=== PATIENT | female | born 1965 | race Caucasian/White ===

== ENCOUNTER → 2016-09-16 | Outpatient (CLI) | payer OTHER ==
--- NOTE | 2016-09-17 10:05 | Diagnostic Imaging Report ---
Bilateral screening mammogram The current study was also evaluated with a Computer Aided Detection (CAD) system. Indication: Screening. No current complaints stated on the questionnaire. COMPARISON: 09/08/15. FINDINGS: The breasts are composed of heterogeneously dense parenchyma which may decrease mammographic sensitivity. There is no mass, architectural distortion or suspicious cluster of calcification. Allowing for technique and positional differences, no suspicious change is seen. IMPRESSION: Dense breasts with no definite change. ACR BI-RADS Category 2: Benign findings. Result letter will be mailed to the patient. Note: At least 10% of breast cancer is not imaged by mammography. Dictated by: Dictated on workstation # [id number]
== END ==
LOC: RAD 10:40
PROVIDERS: ATTEND Nurse Practitioner Adult Health
DX: Z12.31 Encounter for screening mammogram for malignant neoplasm of breast (principal)
CPT/HCPCS: 77067

== ENCOUNTER → 2017-11-06 | Outpatient (CLI) | payer OTHER ==
--- NOTE | 2017-11-06 10:41 | Diagnostic Imaging Report ---
INDICATION: Routine screening. COMPARISON: 09/16/2016 and 09/08/2015. TECHNIQUE: Screening digital mammography was performed bilaterally with a Computer Aided Detection (CAD) system. FINDINGS: Both breasts are heterogeneously dense, limiting the sensitivity of mammography. There is a cluster of microcalcifications in the upper outer aspect of the left breast at mid to posterior depth. The calcifications appear to be increased in number since the prior exam. Additional views are recommended. No spiculated mass is seen. The axillae are unremarkable. The right breast is unremarkable. IMPRESSION: Cluster of microcalcifications in the upper outer left breast, increased since the prior exam. Additional views including magnification views and mediolateral views are recommended for further evaluation. ACR BI-RADS Category 0: Incomplete. (Needs additional imaging evaluation). Result letter will be mailed to the patient. Note: At least 10% of breast cancer is not imaged by mammography. Dictated by: Dictated on workstation # [id number]
== END ==
LOC: RAD 09:06
PROVIDERS: ATTEND Nurse Practitioner Family
DX: Z12.31 Encounter for screening mammogram for malignant neoplasm of breast (principal); R92.0 Mammographic microcalcification found on diagnostic imaging of breast
CPT/HCPCS: 77067

== ENCOUNTER → 2017-12-05 | Outpatient (CLI) | payer OTHER ==
[~2017-12-05] VITALS: Ht 175.3 cm; Wt 86.2 kg
[~2017-12-05] MED LIST: LIDOCAINE 1% INJ 50 ML (XYLOCAINE) VIAL IJ ONE; LIDOCAINE 1% INJ 50 ML (XYLOCAINE) VIAL ONE
[2017-12-05 13:37] VITALS: BP 117/69
[2017-12-05 15:35] VITALS: BP 118/79
--- NOTE | 2017-12-05 16:25 | Diagnostic Imaging Report ---
INDICATION: Left breast calcifications. Patient presents for stereotactic biopsy. PROCEDURE: Patient was brought to the stereotactic suite and placed in a sitting upright position. The breast was positioned in a 90 degree lateral position. The lateral portion of the left breast was prepped and draped in usual sterile fashion. The cluster of microcalcifications in the upper and outer aspect of the left breast were stereotactically targeted. Dermatotomy was made. The 8-gauge needle was advanced into the left breast with the tip adjacent to the cluster of microcalcifications. At this point, the patient stated that she was not feeling well. Patient was diaphoretic and pale and appeared to be experiencing a vagal reaction. For short period of time, patient appeared to be unresponsive. The needle was quickly removed from the breast. The patient was laid back into supine position. Wet rags were applied to the chest and forehead. Radiology nursing was present as well as myself. Vital signs were stable. Patient very surely became responsive and appropriate. Patient also experienced nausea and vomiting. The procedure was canceled at this point. The patient was monitored. Patient left the department in stable condition. Patient will return for a reattempt at biopsy at a later date. IMPRESSION: Attempted left breast stereotactic biopsy, as described. Dictated by: Dictated on workstation # [id number]
== END ==
LOC: RAD 13:21
PROVIDERS: ATTEND Nurse Practitioner Family
DX: R92.1 Mammographic calcification found on diagnostic imaging of breast (principal); R61 Generalized hyperhidrosis; R11.2 Nausea with vomiting, unspecified; Z53.09 Procedure and treatment not carried out because of other contraindication
CPT/HCPCS: 19081

== ENCOUNTER → 2018-06-08 | Outpatient (CLI) | payer OTHER ==
--- NOTE | 2018-06-08 14:08 | Diagnostic Imaging Report ---
INDICATION: Left breast calcifications, status post stereotactic biopsy. Reportedly, the biopsy results were benign. This study is performed for followup. COMPARISON: Correlation is made with the prior mammograms from 11/06/2017 and 12/03/2017. TECHNIQUE: Unilateral left 2D and 3D diagnostic mammography was performed with CAD. FINDINGS: The left breast is heterogeneously dense, limiting the sensitivity of mammography. A biopsy clip in the upper and outer aspect of the left breast at mid depth is now noted, status post stereotactic biopsy. The cluster of calcifications in the upper-outer left breast is again seen although they do appear to be less numerous on the current study, secondary to the recent biopsy. No discrete mass is seen. No new calcifications are identified. The left axilla is unremarkable. IMPRESSION: Status post left breast stereotactic biopsy of a cluster of microcalcifications in the upper outer aspect. Today's study shows a biopsy clip and decrease in the calcifications. Continued followup to confirm stability is recommended with a repeat exam in 6 months. ACR BI-RADS Category 3: Probably benign findings. Result letter will be mailed to the patient. Note: At least 10% of breast cancer is not imaged by mammography. Dictated by: Dictated on workstation # [id number]
== END ==
LOC: RAD 13:03
PROVIDERS: ATTEND Family Medicine
DX: R92.0 Mammographic microcalcification found on diagnostic imaging of breast (principal)

== ENCOUNTER → 2019-05-19 | Outpatient (CLI) | payer OTHER ==
--- NOTE | 2019-05-19 12:45 | Diagnostic Imaging Report ---
INDICATION: Six-month followup. Patient is status post left breast stereotactic biopsy of calcifications with a benign result. COMPARISON: Left mammogram from 06/08/2018 as well as bilateral mammograms from 11/06/2017 and 09/16/2016. TECHNIQUE: 2D and 3D bilateral diagnostic mammography was performed with CAD. FINDINGS: Both breasts remain heterogeneously dense, limiting the sensitivity of mammography. Post biopsy changes with a stereotactic clip in the upper outer left breast are again noted. Benign calcifications are seen in both breasts. There is no mass or malignant appearing microcalcifications. The axillae are unremarkable. IMPRESSION: No mammographic features suspicious for malignancy are identified. The patient may return to routine annual screening mammography. ACR BI-RADS Category 2: Benign findings. Result letter will be mailed to the patient. Note: At least 10% of breast cancer is not imaged by mammography. Dictated by: Dictated on workstation # [id number]
== END ==
LOC: RAD 08:56
PROVIDERS: ATTEND Family Medicine
DX: R92.8 Other abnormal and inconclusive findings on diagnostic imaging of breast (principal)
CPT/HCPCS: 77066

== ENCOUNTER → 2020-06-28 | Outpatient (CLI) | payer OTHER ==
--- NOTE | 2020-06-28 13:49 | Diagnostic Imaging Report ---
Indication: Prior left breast biopsy with benign result. Correlation is made with prior mammogram 05/19/2019 and 11/06/2017. 2-D and 3-D bilateral diagnostic mammography was performed with CAD. Both breasts are heterogeneously dense, limiting the sensitivity of mammography. Biopsy clip upper outer left breast is again noted. No new mass or malignant appearing microcalcifications are seen. Axillae are unremarkable. IMPRESSION: BI-RADS Category 2 No mammographic features suspicious for malignancy are identified. ACR BI-RADS Category 2: Benign findings. Result letter will be mailed to the patient. Note: At least 10% of breast cancer is not imaged by mammography. Dictated by: Dictated on workstation # [id number]
== END ==
LOC: RAD 12:51
PROVIDERS: ATTEND Nurse Practitioner
DX: Z12.31 Encounter for screening mammogram for malignant neoplasm of breast (principal); R92.2 Inconclusive mammogram
CPT/HCPCS: 77066; G0279; 77062

== ENCOUNTER 2022-08-28 07:57 | Emergency (ER) | payer OTHER ==
[~2022-08-28] VITALS: Ht 168 cm; Wt 85.0 kg
--- NOTE | 2022-08-28 08:17 | ED Syncope ---
General Chief Complaint: Dizziness/Syncope Stated Complaint: PASSED OUT Nursing Triage Note: Patient to ER by [facility]. Patient was at [facility] for a routine blood draw and passed out after being stuck. Source of Information: Patient Exam Limitations: No Limitations History of Present Illness Date Seen by Provider: Aug 28, 2022 Time Seen by Provider: 08:05 Initial Comments Patient is a 57-year-old female who presents to the emergency room by ambulance from [facility]. She was getting routine fasting lab work drawn. She has a history of syncopal events with medical procedures. She states she was sitting in a chair, the blood draw was very painful. She started feeling sweaty slightly nauseous and had a feeling that she needed to have a bowel movement. She was able to tell staff that she was about to pass out. She had a brief syncopal episode. Woke up without any complaints. No headache, palpitations, chest pain. No shortness of breath abdominal pain. She is experiencing no complaints of illness. She did not fall out of the chair have an injury. She refused blood sugar evaluation by EMS in route secondary to fear of the needlestick. Vital signs on arrival are normal, no hypoxia, no tachycardia, no hypotension or hypertension. Completely neurologically normal. Timing/Prior Episodes: Other (history of previous) Symptoms Prior to Episode: Diaphoresis, Lightheadedness Precipitating Factors: Other (blood draw) Loss of Consciousness: Brief (Seconds) Current Symptoms: Back to Normal Allergies and Home Medications Allergies Coded Allergies: No Known Drug Allergies (Unverified , 12/05/17) Patient Home Medication List Home Medication List Reviewed: Yes Review of Systems Constitutional: see HPI EENTM: no symptoms reported Respiratory: no symptoms reported Cardiovascular: no symptoms reported Gastrointestinal: no symptoms reported Genitourinary: no symptoms reported Musculoskeletal: no symptoms reported Skin: other (sweating) All Other Systems Reviewed Negative Unless Noted: Yes Past Igldmhg-Lasmmx-Gchhbx Hx Patient Social History Tobacco Use?: No Substance use?: No Alcohol Use?: Yes Alcohol type: Wine Alcohol Frequency: Several times a month Physical Exam Vital Signs Vital Signs - First Documented 08/28/22 08:02 Temp 35.9 Pulse 53 Resp 18 Pulse Ox 98 O2 Delivery Room Air Capillary Refill : Less Than 3 Seconds Height, Weight, BMI Height: 5'9.00" Weight: 190lbs. 0.0oz. 86.348692qh; 30.00 BMI Method: General Appearance: No Apparent Distress, WD/WN HEENT: PERRL/EOMI, Pharynx Normal Neck: Normal Inspection Cardiovascular: Regular Rate, Rhythm, Normal Peripheral Pulses Respiratory: Lungs Clear, Normal Breath Sounds, No Accessory Muscle Use, No Respiratory Distress Neurologic/Psychiatric: Alert, Oriented x3, No Motor/Sensory Deficits, Normal Mood/Affect, airplane rigger II-XII Norm as Tested Cranial Nerves: Normal Hearing, Normal Speech, PERRL Coordination/Gait: Negative Romberg's Sign Motor/Sensory: No Motor Deficit, No Sensory Deficit, No Pronator Drift Skin: Normal Color, Warm/Dry Progress/Results/Core Measures Results/Orders Vital Signs/I&O 08/28/22 08:02 Temp 35.9 Pulse 53 Resp 18 B/P (MAP) Pulse Ox 98 O2 Delivery Room Air Progress Progress Note : Time: 08:16 Progress Note Patient seen and evaluated, 57-year-old female with a history of thyroid disease, on antidepressants at clinic for routine blood draw with syncopal episode. Evaluation today includes physical exam, brief period of monitoring. Clinically stable. No objective findings concerning for acute stroke or other significant pathology. She is completely back to baseline without complaints. Offered royer crackers, saltines and water. Patient will be discharged home to resume prior medical care. All questions are sought and answered. Patient is stable for discharge Departure Impression Primary Impression: Vasovagal syncope Disposition: 01 HOME, SELF-CARE Condition: Stable Departure-Patient Inst. Decision time for Depature: 08:14 Referrals: JAIDA TORRES APRN (PCP) Primary Care Physician [facility] (Family) Primary Care Physician Patient Instructions: Vasovagal Response Add. Discharge Instructions: Continue your current medications as prescribed. Keep your follow up with your primary care as scheduled. Return to the Emergency Department for any new concerning or emergent complaints, Copy Copies To 1: DEYVI FRANKLIN KATHRYN M MD Aug 28, 2022 08:17
== END 2022-08-28 08:40 | disposition home or self-care (01) ==
LOC: EDUNIT# 07:57 → ER 07:59
DX: R55 Syncope and collapse (principal); Z28.310 Unvaccinated for COVID-19
CPT/HCPCS: 99283